=== PATIENT | male | born 1945 | race Hispanic/Latino ===

== ENCOUNTER → 2019-06-16 | Outpatient (CLI) | payer MEDICARE ==
--- NOTE | 2019-06-16 13:00 | Diagnostic Imaging Report ---
EXAMINATION: CHEST 2 VIEWS INDICATION: Shortness of breath COMPARISON: None FINDINGS: LINES/TUBES:None LUNGS:The right lung is underinflated. The left lung is moderately inflated. Linear opacities at the left mid lung and right lung base, likely subsegmental atelectasis. No focal consolidation or pulmonary edema. PLEURA:No pleural effusion or pneumothorax. MEDIASTINUM:The cardiomediastinal silhouette appears normal in size and shape. Atherosclerotic calcifications of the thoracic aorta. BONES/SOFT TISSUES:No acute osseous injury. Mild degenerative changes of the visualized spine. ABDOMEN:No free air under the diaphragm. Status post cholecystectomy. IMPRESSION: Bibasilar subsegmental atelectasis. No focal pneumonia or pulmonary edema. Signed by: Hayden Pepper MD on 06/16/2019 12:57 PM
== END ==
LOC: RAD 12:26
PROVIDERS: ATTEND Family Medicine
DX: R06.02 Shortness of breath (principal); J98.11 Atelectasis
CPT/HCPCS: 71046

== ENCOUNTER → 2020-08-30 | Outpatient (CLI) | payer MEDICARE | LOC: RAD 08:57 | PROVIDERS: ATTEND Family Medicine | DX: Z01.812 Encounter for preprocedural laboratory examination (principal); M54.2 Cervicalgia; M25.512 Pain in left shoulder; M25.511 Pain in right shoulder | CPT/HCPCS: U0002 ==

== ENCOUNTER → 2020-09-02 | Outpatient (CLI) | payer MEDICARE | LOC: DX 15:19 | PROVIDERS: ATTEND Family Medicine | DX: K21.9 Gastro-esophageal reflux disease without esophagitis (principal) | CPT/HCPCS: 72050; 74246 ==

== ENCOUNTER → 2024-02-14 | Outpatient (REF) | payer MEDICARE, OTHER | LOC: RAD 13:49 | PROVIDERS: ATTEND Family Medicine | DX: R07.89 Other chest pain (principal) | CPT/HCPCS: 71101 ==

== ENCOUNTER → 2024-03-09 | Outpatient (REF) | payer MEDICARE, OTHER | LOC: RAD 12:36 | PROVIDERS: ATTEND Family Medicine | DX: J98.11 Atelectasis (principal) | CPT/HCPCS: 71046 ==

== ENCOUNTER → 2025-03-07 | Outpatient (REF) | payer MEDICARE | LOC: RAD 10:24 | PROVIDERS: ATTEND Family Medicine | DX: S40.012A Contusion of left shoulder, initial encounter (principal) ==

== ENCOUNTER → 2025-03-20 | Outpatient (REF) | payer MEDICARE | LOC: RAD 16:11 | PROVIDERS: ATTEND Internal Medicine Rheumatology | DX: M25.512 Pain in left shoulder (principal); M25.511 Pain in right shoulder; M79.642 Pain in left hand; M79.641 Pain in right hand ==